=== PATIENT | male | born 1995 | race Two or more races ===

== ENCOUNTER 2017-01-27 13:29 | Emergency (ER) | payer SELFPAY ==
[~2017-01-27] VITALS: Ht 165.1 cm; Wt 70.3 kg
[~2017-01-27 13:29] MED LIST: FAMO-63 PO; ONDA4TAB7 PO
[2017-01-27 13:31] VITALS: BP 104/67
--- NOTE | 2017-01-27 13:56 | PHYS DOC ---
Past Medical History Past Medical History: No Pertinent History Past Surgical History: No Surgical History Alcohol Use: Occasionally Drug Use: None Adult General Chief Complaint Chief Complaint: COUGH HPI HPI Patient is a 21 year old male who presents with 1 week of dry cough, rhinorrhea , nasal congestion, sinus pressure, and postnasal drip. States he had nonbloody nonbilious emesis of mucus yesterday with some remnant nausea today. He tried Benadryl for his symptoms with resultant dizziness but otherwise no improvement of symptoms; this is a first-time instructed Benadryl. He denies headache, vision changes, measured fever, chest pain, dyspnea, abdominal pain, rash, diarrhea. Denies recent travel or recent antibiotics. Brother is sick with exact same symptoms. Review of Systems Review of Systems Constitutional: Denies fever or chills [] Eyes: Denies change in visual acuity, redness, or eye pain [] HENT: Denies sore throat [] Respiratory: Denies shortness of breath [] Cardiovascular: No additional information not addressed in HPI [] GI: Denies abdominal pain, bloody stools or diarrhea [] : Denies dysuria or hematuria [] Musculoskeletal: Denies back pain or joint pain [] Integument: Denies rash or skin lesions [] Neurologic: Denies focal weakness or sensory changes [] Endocrine: Denies polyuria or polydipsia [] Allergies Allergies Allergies Coded Allergies Type Severity Reaction Last Updated Verified No Known Drug Allergies 09/04/16 No Physical Exam Physical Exam Constitutional: Well developed, well nourished, no acute distress, non-toxic appearance. [] HENT: Normocephalic, atraumatic, bilateral TMs with air congestion, oropharynx moist, no oral exudates, nose normal. [] Eyes: PERRLA, EOMI, conjunctiva normal, no discharge. [] Neck: Normal range of motion, no tenderness, supple, no stridor. [] Cardiovascular:Heart rate regular rhythm [] Lungs & Thorax: Bilateral breath sounds clear to auscultation [] Abdomen: Bowel sounds normal, soft, no tenderness. [] Skin: Warm, dry, no erythema, no rash. [] Back: Normal range of motion. [] Extremities: ROM intact, no edema. [] Neurologic: Alert and oriented X 3, normal motor function, normal sensory function, no focal deficits noted. [] Psychologic: Affect normal, judgement normal, mood normal. [] Current Patient Data Vital Signs Vital Signs Date Time Temp Pulse Resp B/P Pulse Ox O2 Delivery O2 Flow Rate FiO2 01/27/17 13:31 97.7 79 18 104/67 97 Room Air 97.7 Course & Med Decision Making Course & Med Decision Making Appears well on exam. Discussed symptomatic care for likely viral upper respiratory infection. Return precautions given. He understands and agrees with plan. Dragon Disclaimer Dragon Disclaimer This electronic medical record was generated, in whole or in part, using a voice recognition dictation system. Departure Departure Impression: Primary Impression: Viral upper respiratory infection Additional Impression: Nausea & vomiting Disposition: 01 HOME, SELF-CARE Condition: STABLE Referrals: NO PCP (PCP) Patient Instructions: Upper Respiratory Infection, Adult, Pyvn-[id number] Additional Instructions: Take Tylenol or ibuprofen as needed for pain. Use Flonase nasal spray to help with nasal congestion. Take promethazine as needed for nausea. Follow up with your primary care doctor. Return for any concerns. Scripts Promethazine Hcl 25 Mg Tablet1 Tab PO PRN Q6HRS #10 TAB Prov:Robbin HARRIS MD 01/27/17 Fluticasone Propionate (Flonase Allergy Relief)9.9 Ml [place].susp2 Sprays NS DAILY #1 BOTTLE Prov:Robbin HARRIS MD 01/27/17 Problem Qualifiers Additional Impression: Nausea & vomiting Vomiting type: unspecified Vomiting Intractability: non-intractable Qualified Code: R11.2 - Nausea with vomiting, unspecified Robbin HARRIS MD Jan 27, 2017 13:56
[2017-01-27] MEDS ORDERED: PROM25TA10 PO (14:09)
[2017-01-27] MEDS ORDERED: FLUT9.9S NS (14:09)
== END 2017-01-27 14:10 | disposition home or self-care (01) ==
LOC: ER 13:29
DX: J06.9 Acute upper respiratory infection, unspecified (principal); R11.2 Nausea with vomiting, unspecified
CPT/HCPCS: 99283

== ENCOUNTER 2018-02-12 19:10 | Emergency (ER) | payer SELFPAY ==
[2018-02-12] MEDS: LIDO:MAALOX 1:1 20 ML SINGLE DOSE. SWSW (20:29)
[2018-02-12] MEDS: ONDANSETRON ODT 4 MG TAB.RAPDIS. PO (20:30)
[2018-02-12] MEDS: FAMOTIDINE 20 MG TABLET. PO (20:30)
== END 2018-02-12 21:20 | disposition home or self-care (01) ==
LOC: ER 19:10
DX: K21.9 Gastro-esophageal reflux disease without esophagitis (principal); Z79.899 Other long term (current) drug therapy
CPT/HCPCS: 99283; Q0162

== ENCOUNTER 2020-06-22 05:54 | Emergency (ER) | payer SELFPAY ==
[~2020-06-22] VITALS: Ht 165.1 cm; Wt 77.3 kg
[~2020-06-22 05:54] MED LIST changes: +ESOM20CA PO; +FLUT9.9S NS; +PROM25TA10 PO
[2020-06-22 06:36] VITALS: BP 106/57
[2020-06-22 06:57] LABS: BASO % 1 % (0-3); EOS # 0.1 x10^3/uL (0.0-0.7); EOS % 2 % (0-3); HEMATOCRIT 45.5 % (39.0-53.0); HEMOGLOBIN 16.1 g/dL (13.0-17.5); LYMPH # 1.9 x10^3/uL (1.0-4.8); LYMPH % 37 % (24-48); MEAN CORPUSCULAR HEMOGLOBIN 33 pg (25-35); MEAN CORPUSCULAR HGB CONC 35 g/dL (31-37); MEAN CORPUSCULAR VOLUME 93 fL (79-100); MONO # 0.5 x10^3/uL (0.0-1.1); MONO % 9 % (0-9); NEUT # 2.7 x10^3/uL (1.8-7.7); NEUT % 52 % (31-73); PLATELET COUNT 205 x10^3/uL (140-400); RED BLOOD COUNT 4.91 x10^6/uL (4.30-5.70); RED CELL DISTRIBUTION WIDTH 12.1 % (11.5-14.5); WHITE BLOOD COUNT 5.2 x10^3/uL (4.0-11.0)
[2020-06-22] MEDS ORDERED: ONDANSETRON PF 4 MG/2 ML VIAL. IVP ONE (07:00)
[2020-06-22] MEDS ORDERED: FAMOTIDINE 20 MG/2 ML VIAL IVP ONE (07:00)
[2020-06-22] MEDS ORDERED: IV NORMAL SALINE 1000ML BAG 1,000 ML IV ONE (07:00)
[2020-06-22 07:05] LABS: CALCIUM 8.9 mg/dL (8.5-10.1); POTASSIUM 3.3 mmol/L (3.5-5.1)
[2020-06-22 07:11] LABS: ALBUMIN 4.3 g/dL (3.4-5.0); ALBUMIN/GLOBULIN RATIO 1.3 (1.0-1.7); MAGNESIUM 2.3 mg/dL (1.8-2.4); TOTAL BILIRUBIN 0.5 mg/dL (0.2-1.0); TOTAL PROTEIN 7.7 g/dL (6.4-8.2)
--- NOTE | 2020-06-22 07:44 | PHYS DOC ---
Past Medical History Past Medical History: GERD Past Surgical History: No Surgical History Smoking Status: Never Smoker Alcohol Use: Occasionally Drug Use: None General Adult EDM: Chief Complaint: CHEST PAIN HPI: HPI: Patient is a 25 year old male who presents to the Emergency Room complaining of epigastric abdominal pain x 2 hours. He states it woke him from his sleep. He has associated nausea and palpitations. Review of Systems: Review of Systems: General: Denies fever, chills, sweats, fatigue Eyes: Denies drainage, blurred vision, eye redness HENT: Denies rhinorrhea, sore throat, earache Respiratory: Denies cough, shortness of breath, wheezing Cardiac: Denies edema, chest pain reports palpitations GI: Reports epigastric abdominal pain, nausea MSK: Denies back pain, neck pain Skin: Denies rash, jaundice Neuro: Denies headache, dizziness Psychiatric: Denies SI/HI Heart Score: Risk Factors: Risk Factors: DM, Current or recent (<one month) smoker, HTN, HLP, family history of CAD, obesity. Risk Scores: Score 0 - 3: 2.5% MACE over next 6 weeks - Discharge Home Score 4 - 6: 20.3% MACE over next 6 weeks - Admit for Clinical Observation Score 7 - 10: 72.7% MACE over next 6 weeks - Early Invasive Strategies Current Medications: Current Medications Medications (Trade) Dose Ordered Sig/Gopal Start Time Stop Time Status Last Admin Dose Admin Famotidine (Pepcid Vial) 20 mg 1X ONCE 06/22/20 07:00 06/22/20 07:01 DC 06/22/20 06:44 20 MG Ondansetron HCl (Zofran) 4 mg 1X ONCE 06/22/20 07:00 06/22/20 07:01 DC 06/22/20 06:44 4 MG Sodium Chloride 1,000 ml @ 1,000 mls/hr 1X ONCE 06/22/20 07:00 06/22/20 07:59 06/22/20 06:45 1,000 MLS/HR Allergies: Allergies: Allergies Coded Allergies Type Severity Reaction Last Updated Verified No Known Drug Allergies 09/04/16 No Physical Exam: PE: General: Awake, alert, NAD. Well Nourished, well hydrated. Cooperative HEENT: Atraumatic, EOMI, PERRL, airway patent, moist oral mucosa Neck: Supple, trachea midline Respiratory: CTA bilaterally, normal effort, no wheezing/crackles CV: RRR, no murmur, cap refill <2 GI: Soft, nondistended, nontender, no masses MSK: No obvious deformities Skin: Warm, dry, intact Neuro: A&O x3, speech NL, sensory and motor grossly intact, no focal deficits Psych: Normal affect, normal mood, not suicidal or homicidal Current Patient Data: Labs: Laboratory Tests Test 06/22/20 06:15 White Blood Count 5.2 x10^3/uL (4.0-11.0) Red Blood Count 4.91 x10^6/uL (4.30-5.70) Hemoglobin 16.1 g/dL (13.0-17.5) Hematocrit 45.5 % (39.0-53.0) Mean Corpuscular Volume 93 fL (79-100) Mean Corpuscular Hemoglobin 33 pg (25-35) Mean Corpuscular Hemoglobin Concent 35 g/dL (31-37) Red Cell Distribution Width 12.1 % (11.5-14.5) Platelet Count 205 x10^3/uL (140-400) Neutrophils (%) (Auto) 52 % (31-73) Lymphocytes (%) (Auto) 37 % (24-48) Monocytes (%) (Auto) 9 % (0-9) Eosinophils (%) (Auto) 2 % (0-3) Basophils (%) (Auto) 1 % (0-3) Neutrophils # (Auto) 2.7 x10^3/uL (1.8-7.7) Lymphocytes # (Auto) 1.9 x10^3/uL (1.0-4.8) Monocytes # (Auto) 0.5 x10^3/uL (0.0-1.1) Eosinophils # (Auto) 0.1 x10^3/uL (0.0-0.7) Basophils # (Auto) 0.0 x10^3/uL (0.0-0.2) Sodium Level 140 mmol/L (136-145) Potassium Level 3.3 mmol/L (3.5-5.1) L Chloride Level 103 mmol/L (98-107) Carbon Dioxide Level 29 mmol/L (21-32) Anion Gap 8 (6-14) Blood Urea Nitrogen 16 mg/dL (8-26) Creatinine 1.0 mg/dL (0.7-1.3) Estimated GFR (Cockcroft-Gault) 91.0 BUN/Creatinine Ratio 16 (6-20) Glucose Level 98 mg/dL (70-99) Calcium Level 8.9 mg/dL (8.5-10.1) Magnesium Level 2.3 mg/dL (1.8-2.4) Total Bilirubin 0.5 mg/dL (0.2-1.0) Aspartate Amino Transferase (AST) 24 U/L (15-37) Alanine Aminotransferase (ALT) 44 U/L (16-63) Alkaline Phosphatase 77 U/L (46-116) Total Protein 7.7 g/dL (6.4-8.2) Albumin 4.3 g/dL (3.4-5.0) Albumin/Globulin Ratio 1.3 (1.0-1.7) Lipase 140 U/L (73-393) Laboratory Tests 06/22/20 06:15 Laboratory Tests 06/22/20 06:15 Vital Signs: Vital Signs Date Time Temp Pulse Resp B/P (MAP) Pulse Ox O2 Delivery O2 Flow Rate FiO2 06/22/20 06:36 59 20 106/57 (73) 100 Room Air 06/22/20 06:02 98.0 98.0 EKG: EKG: [] Radiology/Procedures: Radiology/Procedures: [] Course & Med Decision Making: Course & Med Decision Making Pertinent Labs and Imaging studies reviewed. (See chart for details) Patient is 25-year-old male who presents the emergency room complaining of epigastric abdominal pain with palpitations. Is possible this is related to gastritis versus anxiety. Labs were ordered to rule out anemia, electrolyte changes. EKG was done and was negative for STEMI. Work-up was normal. Patient was given symptomatic care and is feeling much better at this time. At this time he is stable to be discharged home with Nexium and Atarax. Patient's test results and vitals while in the ED were fully reviewed and discussed with the patient. Patient is stable and at this time does not need admission to the hospital. We have discussed strict return precautions and the importance of following up with their Primary Care Physician. Patient stated understanding and was given an opportunity to ask any questions. Patient is in agreement with plan. Thaddeus Disclaimer: Thaddeus Disclaimer: This electronic medical record was generated, in whole or in part, using a voice recognition dictation system. Departure Departure Impression: Primary Impression: Epigastric abdominal pain Disposition: HOME, SELF-CARE Condition: STABLE Referrals: NO PCP (PCP) Patient Instructions: Anxiety and Panic Attacks, Gastritis, Adult, [id number] Scripts Esomeprazole Magnesium (NEXIUM CAPSULE) 20 Mg Capsule.dr 1 CAP PO DAILY, #30 CAP 2 Refills Prov: JOSEFINA GERARD MD 06/22/20 Hydroxyzine Hcl (HYDROXYZINE HCL) 25 Mg Tablet 1 TAB PO TID PRN for ANXIETY / AGITATION, #30 TAB Prov: JOSEFINA GERARD MD 06/22/20 Justicifation of Admission Dx: Justifications for Admission: Justification of Admission Dx: N/A JOSEFINA GERARD MD Jun 22, 2020 07:44
[2020-06-22] MEDS ORDERED: ESOM20CA PO (08:16)
[2020-06-22] MEDS ORDERED: HYDR25TA PO (08:16)
[2020-06-22 08:30] LABS: BILIRUBIN,URINE NEGATIVE (NEG); CLARITY,URINE CLEAR; COLOR,URINE YELLOW; NITRITE,URINE NEGATIVE (NEG); PH,URINE 6.5 (<5.0-8.0); PROTEIN,URINE NEGATIVE (NEG-TRACE); UROBILINOGEN,URINE 0.2 mg/dL (0.2 mg/dL)
--- NOTE | 2020-06-22 08:38 | EKG ---
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
[2020-06-22 08:50] LABS: BACTERIA,URINE 0 /HPF (0-FEW); RBC,URINE 0 /HPF (0-2); SQUAMOUS EPITHELIAL CELL,UR OCC /LPF; WBC,URINE OCC /HPF (0-4)
== END 2020-06-22 08:41 ==
LOC: ER 05:54
DX: R10.13 Epigastric pain (principal); R11.0 Nausea; R00.2 Palpitations; K21.9 Gastro-esophageal reflux disease without esophagitis
CPT/HCPCS: 36415; 80053; 81001; 83690; 83735; 85025; 93005; 96361; 96374; 96375; 99284; J2405; J3490; J7030

== ENCOUNTER 2020-12-25 04:09 | Emergency (ER) | payer SELFPAY ==
[~2020-12-25] VITALS: Ht 165.1 cm; Wt 77.3 kg
[~2020-12-25 04:09] MED LIST changes: +HYDR25TA PO
--- NOTE | 2020-12-25 04:41 | PHYS DOC ---
Past Medical History Past Medical History: GERD Past Surgical History: No Surgical History Smoking Status: Never Smoker Alcohol Use: Rarely Drug Use: None General Adult EDM: Chief Complaint: ABDOMINAL PAIN HPI: HPI: Patient is a 25 year old male with past medical history of GERD the presents with chest pain. Patient reports that last night he had some homemade red sauce was very spicy. After eating the red sauce patient started having heartburn and acid reflux. Patient had history of chronic GERD. He had tried many [id number] medication including Prilosec, Pepcid, Tums, but none of them works for him. Only patient is having a lot of epigastric discomfort, and sour taste in his mouth. He sees Dr. Byrd as his primary care doctor regularly, but he wants to figure out a treatment plan for his acid reflux in the ER. Patient denies fever, chills, chest pain, shortness of air, cough, abdominal pain, and numbness and tingling in the hands and feet. Patient is the main historian. Review of Systems: Review of Systems: Review of systems: Constitutional symptoms- No fever, no chills. Eyes- No Discharge, No Visual Loss Respiratory symptoms- No shortness of breath, No wheezing, No Dyspnea on Exertion Cardiovascular Systems; No chest pain, No Palpitations, No syncope Gastrointestinal symptoms: Reports acid reflux, heartburn, epigastric pain. Genitourinary symptoms: No dysuria. Musculoskeletal symptoms: No back pain No extremity pain. NEUROLOGICAL Symptoms: No headache, no generalized weakness; No focal Weakness Heart Score: C/O Chest Pain: No Risk Factors: Risk Factors: DM, Current or recent (<one month) smoker, HTN, HLP, family history of CAD, obesity. Risk Scores: Score 0 - 3: 2.5% MACE over next 6 weeks - Discharge Home Score 4 - 6: 20.3% MACE over next 6 weeks - Admit for Clinical Observation Score 7 - 10: 72.7% MACE over next 6 weeks - Early Invasive Strategies Current Medications: Current Medications Medications (Trade) Dose Ordered Sig/Gopal Start Time Stop Time Status Last Admin Dose Admin Multi-Ingredient Mouthwash/Gargle (Gi Cocktail) 20 ml 1X ONCE 12/25/20 04:45 12/25/20 04:46 UNV Allergies: Allergies: Allergies Coded Allergies Type Severity Reaction Last Updated Verified No Known Drug Allergies 09/04/16 No Physical Exam: PE: General: alert, no acute distress. Skin: warm, dry and intact. Head:: Normocephalic, atraumatic. Neck: Trachea midline. Eyes: EOMI, Normal conjunctiva, No drainage CARDIOVASCULAR: Regular rate and rhythm RESPIRATORY: No respiratory distress Back: Full range of motion. MUSCULOSKELETAL: Full range of motion of bilateral upper and lower extremities. GASTROINTESTINAL: Abdomen soft without rebound or guarding. NEUROLOGICAL: Alert and noted to person, place and time. No neurological deficits observed Psychiatric: Cooperative. Normal judgment Current Patient Data: Vital Signs: Vital Signs Date Time Temp Pulse Resp B/P (MAP) Pulse Ox O2 Delivery O2 Flow Rate FiO2 12/25/20 04:17 98.1 77 20 125/76 (92) 98 Room Air 98.1 EKG: EKG: [] Radiology/Procedures: Radiology/Procedures: [] Course & Med Decision Making: Course & Med Decision Making Pertinent Labs and Imaging studies reviewed. (See chart for details) [] Treated with GI cocktail. Posttreatment discomfort resolved. Dragon Disclaimer: Dragon Disclaimer: This electronic medical record was generated, in whole or in part, using a voice recognition dictation system. Departure Departure Impression: Primary Impression: GERD (gastroesophageal reflux disease) Disposition: 01 DC HOME SELF CARE/HOMELESS Condition: STABLE Referrals: Francisco BYRD MD (PCP) Patient Instructions: Diet for Gastroesophageal Reflux Disease, Adult, Gastroesophageal Reflux Disease, Adult MARCELO MEJIA DO Dec 25, 2020 04:41
[2020-12-25] MEDS ORDERED: LIDO:MAALOX 1:1 20 ML SINGLE DOSE. SWSW ONE (04:45)
[2020-12-25 05:17] VITALS: BP 112/75
== END 2020-12-25 05:28 | disposition home or self-care (01) ==
LOC: ER 04:09
DX: K21.9 Gastro-esophageal reflux disease without esophagitis (principal); R07.89 Other chest pain
CPT/HCPCS: 99282